=== PATIENT | female | born 1955 | race Caucasian/White ===

== ENCOUNTER 2022-06-01 14:42 | Emergency (ER) | payer OTHER, MEDICARE ==
[~2022-06-01] VITALS: Ht 152.4 cm; Wt 90.5 kg
[2022-06-01 15:02] VITALS: TEMP 98.4
[2022-06-01 17:04] VITALS: BP 136/88; PULSE 86
== END 2022-06-01 17:03 | disposition home or self-care (01) ==
LOC: COL.ER 14:42
DX: S16.1XXA Strain of muscle, fascia and tendon at neck level, initial encounter (principal); S60.212A Contusion of left wrist, initial encounter; S30.811A Abrasion of abdominal wall, initial encounter; Z91.040 Latex allergy status; Z28.310 Unvaccinated for COVID-19; V49.49XA Driver injured in collision with other motor vehicles in traffic accident, initial encounter; Y92.410 Unspecified street and highway as the place of occurrence of the external cause

== ENCOUNTER 2022-08-25 11:15 | Outpatient (RCR) | payer MEDICARE | END 2022-08-29 | disposition home or self-care (01) | LOC: MKS.ESL.PT | DX: M54.2 Cervicalgia (principal) ==